=== PATIENT | female | born 1995 | race African-American/Black ===

== ENCOUNTER 2020-07-09 21:32 | Emergency (ER) | payer OTHER ==
[~2020-07-09] VITALS: Ht 165.1 cm; Wt 79.4 kg
[2020-07-09 22:12] LABS: ABSOLUTE NEUTROPHILS 11.1 thou/uL (1.4-8.2); BASOPHILS 0.4 % (0.0-2.0); EOSINOPHILS 0.3 % (0.0-3.0); HEMATOCRIT 35.2 % (37.0-47.0); HEMOGLOBIN 11.6 gm/dL (12.0-15.0); LYMPHOCYTES 14.4 % (24.0-44.0); MCH 28.3 pg (26.0-34.0); MCV 85.7 fL (80.0-100.0); MONOCYTES 7.7 % (1.0-8.0); PLATELET COUNT 278 thou/uL (150-400); POLYS 77.2 % (36.0-66.0); RBC 4.11 mil/uL (4.20-5.00); RDW 13.8 % (10.5-14.5); WBC 14.4 thou/uL (4.0-11.0)
[2020-07-09 22:22] LABS: POTASSIUM 3.7 mmol/L (3.5-5.1)
[2020-07-09 22:28] LABS: ALBUMIN 3.9 g/dL (3.4-5.0); DIRECT BILIRUBIN 0.2 mg/dL (<0.1-0.2); TOTAL BILIRUBIN 0.6 mg/dL (0.2-1.0); TOTAL PROTEIN 8.1 g/dL (6.4-8.2)
[2020-07-09 23:21] LABS: URINE BILIRUBIN NEGATIVE (Negative); URINE BLOOD 2+ (Negative); URINE CLARITY CLEAR; URINE COLOR YELLOW; URINE GLUCOSE-RANDOM* NEGATIVE (Negative); URINE KETONES 1+ (Negative); URINE LEUKOCYTES-REFLEX NEGATIVE (Negative); URINE NITRITE-REFLEX NEGATIVE (Negative); URINE PROTEIN (DIPSTICK) TRACE (Negative); URINE SPECIFIC GRAVITY 1.015 (1.005-1.035)
[2020-07-09 23:30] LABS: CASTS None Seen /LPF (None Seen); CRYSTALS None Seen /LPF (None Seen); MUCUS 4-6 Moderate strn/LPF (None Seen); SQUAMOUS 0-3 Few /LPF (0-3); URINE RBC 3-10 Few /HPF (NONE SEEN); URINE WBC-REFLEX 6-15 Few /HPF (0-5)
[2020-07-10] MEDS ORDERED: AMOXICILLIN875 MG PO (01:04)
[2020-07-10 01:15] VITALS: BP 107/55
--- NOTE | 2020-07-12 07:03 | EKG ---
[address] [employer] [place] [address] ELECTROCARDIOGRAM REPORT Name: TED HARPER Room #: DEP [facility]riel[facility] [id number] Admission: 07/09/20 Attend Phys: Discharge: 07/10/20 Date of : [birth year] Report #: [id number] [facility] ED Test Date: 2020-07-09 Test Time: 21:47:39 Pat Name: TED HARPER Department: Room: Gender: F Rn Imcu: ANGELO : 1995 Requested By: Dinesh Corrales Order Number: [id number] MD: Larry Carbajal Measurements Intervals [place] Rate: 132 P: 71 TX: 151 QRS: 23 QRSD: 81 T: 26 QT: 287 QTc: 425 Interpretive Statements Sinus tachycardia Probable left atrial enlargement RSR' in V1 or V2, right VCD or RVH No previous ECG available for comparison Electronically Signed On 07-12-2020 7:03:32 CDT by Larry Carbajal [email or web address] <ELECTRONICALLY SIGNED> By: Larry Carbajal MD, [facility] 07/12/20 07 2147 214 Larry Carbajal MD, FACC /EPI
== END 2020-07-10 01:16 | disposition home or self-care (01) ==
LOC: ER 21:32
PROVIDERS: Nurse Practitioner
DX: J02.9 Acute pharyngitis, unspecified (principal); R53.81 Other malaise